=== PATIENT | female | born 1950 | race Two or more races ===

== ENCOUNTER 2019-11-08 13:59 | Outpatient (CLI) | payer OTHER ==
[~2019-11-08] VITALS: Ht 149.9 cm; Wt 44.0 kg
[2019-11-08] MEDS ORDERED: FOSAMAX70 MG (14:26)
[2019-11-08] MEDS ORDERED: FLONASE16 GM NASAL (14:43)
== END 2019-11-08 14:15 | disposition home or self-care (01) ==
LOC: OFIC 805 13:59
PROVIDERS: ATTEND Otolaryngology
DX: H90.11 Conductive hearing loss, unilateral, right ear, with unrestricted hearing on the contralateral side (principal); H93.8X1 Other specified disorders of right ear

== ENCOUNTER 2020-01-11 15:30 | Outpatient (CLI) | payer OTHER ==
[~2020-01-11 15:30] MED LIST: FLONASE16 GM NASAL; FOSAMAX70 MG
== END 2020-01-11 16:00 | disposition home or self-care (01) ==
LOC: OFIC 805 15:30
PROVIDERS: ATTEND Otolaryngology
DX: H90.71 Mixed conductive and sensorineural hearing loss, unilateral, right ear, with unrestricted hearing on the contralateral side (principal); H90.42 Sensorineural hearing loss, unilateral, left ear, with unrestricted hearing on the contralateral side